=== PATIENT | male | born 1995 | race Caucasian/White ===

== ENCOUNTER 2020-08-18 23:12 | Emergency (ER) | payer OTHER ==
[~2020-08-18] VITALS: Ht 188 cm; Wt 102.3 kg
[2020-08-18 23:20] VITALS: TEMP 98.2
[2020-08-19 00:47] LABS: BASO % 0.2 % (0.0-2.0); GRAN % 87.9 % (42.2-75.2); HEMATOCRIT 44.1 % (42.0-52.0); HEMOGLOBIN 14.4 g/dl (13.5-18.0); LYMPH # 0.7 (1.2-3.4); LYMPH % 7.6 % (20.0-51.0); MEAN CELL VOLUME 87 fl (80.0-100.0); MEAN CORPUSCULAR HEMOGLOBIN 29 pg (27.0-31.0); MEAN CORPUSCULAR HGB CONC 33 g/dl (33.0-37.0); MEAN PLATELET VOLUME 10.2 fl (7.4-10.4); MONO # 0.4 (0.1-0.6); PLATELET COUNT 246 K/mm3 (130-400); RED BLOOD COUNT 5.06 M/mm3 (4.20-5.60)
[2020-08-19 01:18] LABS: ALANINE AMINOTRANSFERASE 24 U/L (4-49); ALBUMIN 4.9 gm/dL (3.5-5.0); ALKALINE PHOSPHATASE 67 U/L (50-136); ANION GAP 16 mmol/L (7-16); AST,SGOT 38 U/L (15-37); BILIRUBIN,TOTAL 0.5 mg/dL (0.0-1.0); BLOOD UREA NITROGEN 17 mg/dL (9-20); CALCIUM 9.9 mg/dL (8.4-10.2); CARBON DIOXIDE 19 mmol/L (22-30); CHLORIDE 103 mmol/L (98-107); CREATININE, serum 1.03 (0.66-1.25); GLUCOSE 204 mg/dL (74-106); POTASSIUM 4.4 mmol/L (3.4-5.0); SODIUM 137 mmol/L (137-145); TOTAL PROTEIN 7.7 gm/dL (6.4-8.2)
[2020-08-19 01:33] VITALS: BP 131/61; PULSE 79
[2020-08-19 01:33] LABS: ACETAMINOPHEN < 10 ug/mL (10-30); ALCOHOL(ethanol),MEDICAL < 10 mg/dL; SALICYLATE < 1.0 mg/dL
== END 2020-08-19 01:33 | disposition home or self-care (01) ==
LOC: COL.ER 23:12 → EDBD 23:13 → COL.ER 08-19 01:33
PROVIDERS: Emergency Medicine; Physician Assistant
DX: F19.10 Other psychoactive substance abuse, uncomplicated (principal)
CPT/HCPCS: J1200; J1630; J2060